=== PATIENT | female | born 1945 | race Caucasian/White ===

== ENCOUNTER 2019-01-12 08:02 | Day surgery (SDC) | payer OTHER ==
[~2019-01-12] VITALS: Ht 162.6 cm; Wt 61.7 kg
[2019-01-12] MEDS ORDERED: LIDOCAINE 2% 100 MG/5 ML UJET TP ONE (11:48)
[2019-01-12] MEDS ORDERED: fentaNYL 0.05 MG/ML VIAL ONE (11:48)
[2019-01-12] MEDS ORDERED: fentaNYL 0.05 MG/ML VIAL IVP ONE (12:05)
== END 2019-01-12 12:12 | disposition home or self-care (01) ==
LOC: MOR 08:02 → MMU 08:03 → MOR 12:12
PROVIDERS: ATTEND Internal Medicine Gastroenterology
DX: K59.00 Constipation, unspecified (principal); E78.00 Pure hypercholesterolemia, unspecified; Z79.899 Other long term (current) drug therapy; Z90.49 Acquired absence of other specified parts of digestive tract; Z98.51 Tubal ligation status
CPT/HCPCS: 45378; J3010